=== PATIENT | female | born 1990 | race Caucasian/White ===

== ENCOUNTER 2018-06-11 14:21 | Emergency (ER) | payer SELFPAY ==
[~2018-06-11] VITALS: Ht 175.3 cm; Wt 120.5 kg
[2018-06-11 14:31] VITALS: TEMP 99.2
[2018-06-11] MEDS ORDERED: IMODIUM A-D2 MG PO (14:53)
[2018-06-11 15:50] LABS: BASO % 0.4 % (0.0-2.0); EOS # 0.1 (0.0-0.7); EOS % 0.9 % (0-4.0); GRAN # 3.8 (1.4-6.5); GRAN % 72.7 % (42.2-75.2); HEMATOCRIT 41.4 % (37.0-47.0); HEMOGLOBIN 13.6 g/dl (12.5-16.0); LYMPH # 0.8 (1.2-3.4); LYMPH % 14.8 % (20.0-51.0); MEAN CELL VOLUME 82 fl (80.0-100.0); MEAN CORPUSCULAR HEMOGLOBIN 27 pg (27.0-31.0); MEAN CORPUSCULAR HGB CONC 33 g/dl (33.0-37.0); MEAN PLATELET VOLUME 11.1 fl (7.4-10.4); MONO # 0.6 (0.1-0.6); PLATELET COUNT 199 K/mm3 (130-400); RED BLOOD COUNT 5.07 M/mm3 (4.10-5.30); REDCELL DISTRIBUTION WIDTH-CV 13.3 % (11.5-14.5)
[2018-06-11 16:03] LABS: ALBUMIN 4.3 gm/dL (3.5-5.0); BILIRUBIN,TOTAL 0.5 mg/dL (0.0-1.0); C-REACTIVE PROTEIN 3.4 mg/dL (0.0-0.9); CALCIUM 8.8 mg/dL (8.4-10.2); CREATININE, serum 0.65 mg/dL (0.52-1.25); POTASSIUM 3.7 mmol/L (3.4-5.0); TOTAL PROTEIN 7.5 gm/dL (6.4-8.2)
[2018-06-11] MEDS ORDERED: CIPRO 500MG TA500 MG PO (16:17)
[2018-06-11] MEDS ORDERED: PHENERGAN 25 TA25 MG PO (16:17)
[2018-06-11 16:59] VITALS: BP 142/76; PULSE 97
== END 2018-06-11 16:55 | disposition home or self-care (01) ==
LOC: COL.ER 14:21
PROVIDERS: Emergency Medicine
DX: R19.7 Diarrhea, unspecified (principal); R11.2 Nausea with vomiting, unspecified; R10.9 Unspecified abdominal pain
CPT/HCPCS: J1885; J2405; J7030